=== PATIENT | male | born 1945 | race Caucasian/White ===

== ENCOUNTER 2017-01-04 13:08 | Emergency (ER) | payer OTHER ==
[~2017-01-04] VITALS: Ht 182.9 cm; Wt 104.7 kg
[2017-01-04 13:11] VITALS: TEMP 36.5; Ht 182.9 cm; Wt 104.7 kg
[2017-01-04] MEDS ORDERED: SODIUM CHLORIDE 0.9% 1000ML 1,000 ML IV STA (13:29)
--- NOTE | 2017-01-04 13:56 | DIAGNOSTIC IMAGING REPORT ---
CHEST ONE VIEW PORTABLE CLINICAL HISTORY: Altered mental status. Weakness. COMPARISON STUDY: No previous studies for comparison. FINDINGS: Lung volumes are normal. There is no consolidation to suggest pneumonia. There is no evidence of pulmonary edema. There are median sternotomy wires and a prosthetic cardiac valve which is likely aortic. There is mild to moderate cardiomegaly. No pneumothorax or pleural effusion is identified. IMPRESSION: 1. No acute cardiopulmonary findings. 2. Mild to moderate cardiomegaly. Electronically signed by: Shadi Saleh M.D. 01/04/2017 1:54 PM Dictated Date/Time: 01/04/2017 1:54 PM
[2017-01-04 14:11] LABS: HEMATOCRIT 42.2 % (42-52); MEAN CELL VOLUME 83.9 fL (80-100); MEAN CORPUSCULAR HEMOGLOBIN 27.4 pg (25-34); MEAN CORPUSCULAR HGB CONC 32.7 g/dl (32-36); MEAN PLATELET VOLUME 9.7 fL (7.4-10.4); PLATELET COUNT 223 K/uL (130-400); RED BLOOD COUNT 5.03 M/uL (4.7-6.1); WHITE BLOOD COUNT 8.62 K/uL (4.8-10.8)
[2017-01-04 14:19] LABS: INR 1.8 (0.9-1.1); PARTIAL THROMBOPLASTIN RATIO 1.2; PROTHROMBIN TIME (PATIENT) 19.6 SECONDS (9.0-12.0)
[2017-01-04 14:28] LABS: BASO % 0.2 %; BASO ABS # 0.02 K/uL (0-0.2); COMPLETE YES; EOS % 2.3 %; IG% 0.3 %; LYMPH ABS # 1.21 K/uL (1.2-3.4); MONO % 8.4 %; NEUT % 74.8 %
[2017-01-04 14:30] LABS: ALT/SGPT 27 U/L (12-78); AST/SGOT 23 U/L (15-37); BLOOD UREA NITROGEN 17 mg/dl (7-18); BUN/CREATININE RATIO 18.5 (10-20); CALCIUM 9.4 mg/dl (8.5-10.1); CARBON DIOXIDE 21 mmol/L (21-32); CHLORIDE 109 mmol/L (98-107); CREATININE 0.91 mg/dl (0.60-1.40); GLUCOSE 118 mg/dl (70-99); MAGNESIUM 2.1 mg/dl (1.8-2.4); POTASSIUM 3.6 mmol/L (3.5-5.1); SODIUM 141 mmol/L (136-145)
[2017-01-04 14:40] LABS: ALKALINE PHOSPHATASE 91 U/L (45-117); CKMB/CK RATIO 1.3 (0-3.0)
[2017-01-04] MEDS ORDERED: WARF5TAB7 PO (14:54)
[2017-01-04] MEDS ORDERED: HYZ/50125 PO (14:54)
[2017-01-04] MEDS ORDERED: ATOR-24 PO (14:54)
[2017-01-04] MEDS ORDERED: MULT-506 PO (14:54)
[2017-01-04] MEDS ORDERED: SERT25TA PO (14:54)
[2017-01-04] MEDS ORDERED: METO50TA16 PO (14:54)
--- NOTE | 2017-01-04 16:22 | EMERGENCY ROOM VISIT NOTE ---
History Report prepared by Graham: Odette Ahumada Under the Supervision of: Dr. Yoan Alba D.O. First contact with patient: 13:24 Chief Complaint: HYPOTENSION Stated Complaint: LIGHTHEADED, LOW PULSE/MISSING A BEAT History of Present Illness The patient is a 71 year old male who presents to the Emergency Room with complaints of intermittent lightheadedness that began yesterday. The patient states that he first noticed his lightheadedness last evening. He states that this morning he woke and began doing some work with a chainsaw. He states that he became dizzy while using the chainsaw and almost fell. The patient states that he went back to his house and rested for a small amount of time. He states that he then went to [place], and began feeling lightheaded again. The patient states that he checked his pulse and found that he was bradycardic at a rate of 52-53 beats per minute. He additionally associates palpitations at this time, which prompted his visit to his emergency department. The patient states that he has a history of atrial fibrillation three different times. He states that he hand a cardiac ablation in October of 2015. The patient states that he had his aortic valve replaced in September of 2016. He states that he follows with Cardiac Rehabilitation. The patient states that he has been placed on Coumadin. He states that yesterday his blood pressure was 60 mmHg diastolically. The patient denies any headache. Source of History: patient Onset: yesterday Position: other (global) Quality: other (lightheadedness) Timing: intermittent Note: Associated Symptoms: blood pressure 60 mmHg diastolically, palpitations, dizziness, bradycardic Review of Systems See HPI for pertinent positives & negatives. A total of 10 systems reviewed and were otherwise negative. Past Medical & Surgical Medical Problems: (1) Atrial fibrillation (2) Atrial fibrillation status post cardioversion (3) Heart disease (4) History of cardioversion (5) Hypertension Surgical Problems: (1) H/O aortic valve replacement (2) H/O cardiac radiofrequency ablation Family History Diabetes mellitus Heart disease Hypertension Social History Smoking Status: Never Smoker Smokeless Tobacco Use: No Alcohol Use: none Marital Status: Housing Status: lives with significant other Occupation Status: retired Current/Historical Medications Scheduled Atorvastatin (Lipitor), 40 MG PO HS Hctz/Losartan (Hyzaar 12.5MG/50MG), 1 TAB PO QAM Metoprolol Tartrate (Lopressor) (Lopressor), 50 MG PO BID Multivitamin (Multivitamin), 1 TAB PO QAM Sertraline (Zoloft), 25 MG PO QAM Warfarin Sod (Jantoven), 5 MG PO 1800 Allergies Coded Allergies: No Known Allergies (Unverified , 01/04/17) Physical Exam Vital Signs Date Time Temp Pulse Resp B/P Pulse Ox O2 Delivery O2 Flow Rate FiO2 01/04/17 15:30 55 12 137/85 99 Room Air 01/04/17 14:21 53 16 134/79 98 Room Air 01/04/17 13:25 54 01/04/17 13:11 36.5 57 20 149/83 100 Room Air Physical Exam CONSTITUTIONAL/VITAL SIGNS: Reviewed / noted above. GENERAL: Non-toxic in appearance. INTEGUMENTARY: Warm, dry, and [place]. HEAD: Normocephalic. EYES: without scleral icterus or trauma. ENT/OROPHARYNX: clear and moist. LYMPHADENOPATHY/NECK: Is supple without lymphadenopathy or meningismus. RESPIRATORY: Lungs clear and equal. CARDIOVASCULAR: Regular rate and rhythm. GI/ABDOMEN: Soft and nontender. No organomegaly or pulsatile mass. No rebound or guarding. Normal bowel sounds. EXTREMITIES: Warm and well perfused. BACK: No CVA tenderness. NEUROLOGICAL: Intact without focal deficits. PSYCHIATRIC: normal affect. MUSCULOSKELETAL: Normally developed with good muscle tone. Medical Decision & Procedures ER Provider Diagnostic Interpretation: X ray results and stated below per my interpretation and radiology interpretation. CHEST ONE VIEW PORTABLE CLINICAL HISTORY: Altered mental status. Weakness. COMPARISON STUDY: No previous studies for comparison. FINDINGS: Lung volumes are normal. There is no consolidation to suggest pneumonia. There is no evidence of pulmonary edema. There are median sternotomy wires and a prosthetic cardiac valve which is likely aortic. There is mild to moderate cardiomegaly. No pneumothorax or pleural effusion is identified. IMPRESSION: 1. No acute cardiopulmonary findings. 2. Mild to moderate cardiomegaly. Electronically signed by: Shadi Saleh M.D. 01/04/2017 1:54 PM Dictated Date/Time: 01/04/2017 1:54 PM Laboratory Results 01/04/17 13:45 Red Blood Count 5.03, Mean Corpuscular Volume 83.9, Mean Corpuscular Hemoglobin 27.4, Mean Corpuscular Hemoglobin Concent 32.7, Mean Platelet Volume 9.7, Neutrophils (%) (Auto) 74.8, Lymphocytes (%) (Auto) 14.0, Monocytes (%) (Auto) 8.4, Eosinophils (%) (Auto) 2.3, Basophils (%) (Auto) 0.2, Neutrophils # (Auto) 6.44, Lymphocytes # (Auto) 1.21, Monocytes # (Auto) 0.72, Eosinophils # (Auto) 0.20, Basophils # (Auto) 0.02 01/04/17 13:45 Test 01/04/17 13:45 White Blood Count 8.62 K/uL (4.8-10.8) Red Blood Count 5.03 M/uL (4.7-6.1) Hemoglobin 13.8 g/dL (14.0-18.0) Hematocrit 42.2 % (42-52) Mean Corpuscular Volume 83.9 fL (80-100) Mean Corpuscular Hemoglobin 27.4 pg (25-34) Mean Corpuscular Hemoglobin Concent 32.7 g/dl (32-36) Platelet Count 223 K/uL (130-400) Mean Platelet Volume 9.7 fL (7.4-10.4) Neutrophils (%) (Auto) 74.8 % Lymphocytes (%) (Auto) 14.0 % Monocytes (%) (Auto) 8.4 % Eosinophils (%) (Auto) 2.3 % Basophils (%) (Auto) 0.2 % Neutrophils # (Auto) 6.44 K/uL (1.4-6.5) Lymphocytes # (Auto) 1.21 K/uL (1.2-3.4) Monocytes # (Auto) 0.72 K/uL (0.11-0.59) Eosinophils # (Auto) 0.20 K/uL (0-0.5) Basophils # (Auto) 0.02 K/uL (0-0.2) RDW Standard Deviation 47.7 fL (36.4-46.3) RDW Coefficient of Variation 15.5 % (11.5-14.5) Immature Granulocyte % (Auto) 0.3 % Immature Granulocyte # (Auto) 0.03 K/uL (0.00-0.02) Prothrombin Time 19.6 SECONDS (9.0-12.0) Prothromb Time International Ratio 1.8 (0.9-1.1) Activated Partial Thromboplast Time 31.7 SECONDS (21.0-31.0) Partial Thromboplastin Ratio 1.2 Anion Gap 11.0 mmol/L (3-11) Est Creatinine Clear Calc Drug Dose 91.8 ml/min Estimated GFR () 97.2 Estimated GFR (Non- 83.9 BUN/Creatinine Ratio 18.5 (10-20) Calcium Level 9.4 mg/dl (8.5-10.1) Magnesium Level 2.1 mg/dl (1.8-2.4) Total Bilirubin 0.9 mg/dl (0.2-1) Direct Bilirubin 0.2 mg/dl (0-0.2) Aspartate Amino Transf (AST/SGOT) 23 U/L (15-37) Alanine Aminotransferase (ALT/SGPT) 27 U/L (12-78) Alkaline Phosphatase 91 U/L (45-117) Total Creatine Kinase 126 U/L (39-308) Creatine Kinase MB 1.6 ng/ml (0.5-3.6) Creatine Kinase MB Ratio 1.3 (0-3.0) Troponin I < 0.015 ng/ml (0-0.045) Total Protein 7.3 gm/dl (6.4-8.2) Albumin 3.8 gm/dl (3.4-5.0) Thyroid Stimulating Hormone (TSH) 2.620 uIu/ml (0.300-4.500) Laboratory results as stated above per my review. Medications Administered Medications (Trade) Dose Ordered Sig/Kayla Route Start Time Stop Time Status Last Admin Dose Admin Sodium Chloride (Nss 1000ml) 1,000 ml @ 999 mls/hr Q1H1M STAT IV 01/04/17 13:29 01/04/17 14:29 DC 01/04/17 14:19 999 MLS/HR ECG Indication: other (lightheadedness) Rate (beats per minute): 52 Rhythm: sinus bradycardia Findings: 1st degree AV block, no acute ischemic change, no ectopy ED Course 1324: Previous medical records were reviewed. The patient was evaluated in room B10. A complete history and physical examination was performed. 1329: Ordered Sodium Chloride 1000 ml @ 999 mls/hr IV. 1622: I reevaluated the patient and he is resting comfortably. I discussed the exam findings with him and I discussed the treatment plan. He verbalized complete understanding and agreement. He is ready to go home. Medical Decision Differential includes acute coronary syndrome, myocardial infarction, CVA, TIA, anemia, infection, pneumonia, UTI, pyelonephritis, poor nutrition, dehydration, electrolyte disturbance,hypoglycemia. This is a 71-year-old male who presents to the ED with a chief complaint of feeling lightheaded last night. He states that he was using a chainsaw earlier today and felt a little dizzy and almost fell. He states that his head just didn't feel right. He checked his pulse and he states that his pulse was around 53. And he felt like it might be missed a beat. He came in for evaluation. He has history of recent aortic valve replacement in September. He is currently on anticoagulation. He is in cardiac rehabilitation. His vital signs are normal. His physical exam was normal. EKG shows a sinus bradycardia rate of 52. No acute injury pattern. CBC is normal. INR is 1.8. Complete metabolic panel was normal. Troponin is negative. TSH is normal. Chest x-ray did not show any acute disease. The patient's vital signs remained stable during his ED stay. He was felt to be stable for discharge and outpatient follow-up. He was treated with IV fluids. Impression Primary Impression: Dizziness Scribe Attestation The scribe's documentation has been prepared under my direction and personally reviewed by me in its entirety. I confirm that the note above accurately reflects all work, treatment, procedures, and medical decision making performed by me. Departure Information Dispostion Home / Self-Care Referrals No Doctor, Assigned (PCP) Forms HOME CARE DOCUMENTATION FORM, IMPORTANT VISIT INFORMATION, WORK / SCHOOL INSTRUCTIONS Patient Instructions Dizziness Fainting Poss Causes, [facility] Additional Instructions Follow-up with your doctor for further care and evaluation in 1-2 days. Return to the emergency department for worsening or new symptoms or any concerns. You have been examined and treated today on an emergency basis only. This is not a substitute for, or an effort to provide, complete comprehensive medical care. It is impossible to recognize and treat all injuries or illnesses in a single emergency department visit. It is therefore important that you follow up closely with your doctor. Call as soon as possible for an appointment.
[2017-01-04 16:50] VITALS: BP 135/81; PULSE 59; O2SAT 96
== END 2017-01-04 17:05 | disposition home or self-care (01) ==
LOC: C.EDB 13:10
DX: R42 Dizziness and giddiness (principal); R00.1 Bradycardia, unspecified; R00.2 Palpitations; I48.91 Unspecified atrial fibrillation; Z95.2 Presence of prosthetic heart valve; Z79.01 Long term (current) use of anticoagulants; I10 Essential (primary) hypertension; Z83.3 Family history of diabetes mellitus; Z82.49 Family history of ischemic heart disease and other diseases of the circulatory system